=== PATIENT | female | born 2005 | race Caucasian/White ===

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

== ENCOUNTER → 2023-02-06 | Outpatient (CLI) | payer OTHER ==
--- NOTE | 2023-02-06 15:08 | Diagnostic Imaging Report ---
EXAMINATION: Right forearm radiograph TECHNIQUE: AP and lateral views of the right forearm obtained. HISTORY: CLOSED FRACTURE OF SHAFT OF RADIUS - RIGHT COMPARISON: Right forearm radiograph 01/07/2023. FINDINGS: Healing changes about the right radius fracture cleft. The ulna is intact. No joint effusion. IMPRESSION: Similar healing changes about the right radial fracture cleft. Dictated by: Dictated on workstation # [id number]
== END ==
LOC: ORTHO 08:48
PROVIDERS: ATTEND Orthopaedic Surgery
DX: S52.324D Nondisplaced transverse fracture of shaft of right radius, subsequent encounter for closed fracture with routine healing (principal); X58.XXXD Exposure to other specified factors, subsequent encounter
CPT/HCPCS: 73090; G0463; 99213

== ENCOUNTER → 2023-03-20 | Outpatient (CLI) | payer OTHER ==
--- NOTE | 2023-03-20 10:55 | Diagnostic Imaging Report ---
EXAMINATION: Right forearm 2 views HISTORY: Fracture COMPARISON: 02/06/2023. FINDINGS: There is progressive healing of a right midshaft radial fracture. Alignment is unchanged. No new fracture. Joint spaces are normal. IMPRESSION: 1. Unchanged alignment of a healing right midshaft radial fracture. Dictated by: Dictated on workstation # [id number]
== END ==
LOC: ORTHO 08:21
PROVIDERS: ATTEND Orthopaedic Surgery
DX: S52.324D Nondisplaced transverse fracture of shaft of right radius, subsequent encounter for closed fracture with routine healing (principal); X58.XXXD Exposure to other specified factors, subsequent encounter
CPT/HCPCS: 73090; G0463; 99213